=== PATIENT | male | born 1940 | race African-American/Black ===

== ENCOUNTER → 2019-07-28 | Outpatient (CLI) | payer BC ==
--- NOTE | 2019-07-28 11:28 | PCVCIMAG ---
APPROVED REPORT Study performed: 07/28/2019 09:36:39 EXAM: Comprehensive 2D, Doppler, and color-flow Echocardiogram Patient Location: Echo lab Room #: 2Status: routine BSA: 2.18 HR: 56 bpmBP: 138/76 mmHg Rhythm: Bradycardia Other Information Study Quality: Good Risk Factors: Cardiac Risk Factors: HTN, Hyperlipidemia Indications Abnormal ECG CAD Hypertension/HDD elevated coronary calcium score 2D Dimensions IVSd: 10.21 (7-11mm)LVOT Diam: 20.81 (18-24mm) LVDd: 46.34 mm PWd: 10.53 (7-11mm)Ascending Ao: 33.71 (22-36mm) LVDs: 28.01 (25-40mm) Left Atrium: 28.95 (27-40mm) Aortic Root: 29.43 mm LV Single Plane 4CH: 60.00 % LV Single Plane 2CH: 66.00 % Biplane EF: 64.0 % Volumes Left Atrial Volume (Systole) Single Plane 4CH: 41.86 mLSingle Plane 2CH: 63.04 mL Biplane LA Volume: 52.00 mLLA ESV Index: 24.00 mL/m2 Aortic Valve AoV Peak Coleman.: 1.59 m/s AO Peak Gr.: 10.17 mmHgLVOT Max P.61 mmHg LVOT Max V: 1.04 m/s TISH Vmax: 2.23 cm2 AI Vmax: 3.26 m/s AI Hunt: 1.26 m/s2 AI PHT: 747.98 ms Mitral Valve E/A Ratio: 1.1 MV Decel. Time: 202.34 ms MV E Max Coleman.: 0.60 m/s MV A Coleman.: 0.54 m/s IVRT: 124.57 ms TDI E/Lateral E': 7.50E/Medial E': 10.00 Medial E' Coleman.: 0.06 m/s Lateral E' Coleman.: 0.08 m/s Pulmonary Valve PV Peak Coleman.: 0.78 m/sPV Peak Gr.: 2.46 mmHg Pulmonary Vein P Vein S: 0.47 m/sP Vein A: 0.28 m/s P Vein D: 0.39 m/sP Vein A Dur.: 93.4 msec P Vein S/D Ratio: 1.21 Tricuspid Valve TR Peak Coleman.: 1.91 m/s TR Peak Gr.: 14.65 mmHg TV Vmax: 0.51 m/sPA Pressure: 22.00 mmHg Left Ventricle The left ventricle is normal size. There is normal LV segmental wall motion. There is normal left ventricular wall thickness. Left ventricular systolic function is normal. The left ventricular ejection fraction is within the normal range. LVEF is 60-65%. Mild diastolic dysfunction Right Ventricle The right ventricle is normal size. The right ventricular systolic function is normal. Atria The left atrium size is normal. The right atrium size is normal. Aortic Valve Aortic valve is trileaflet, mildly calcified. Mild to moderate aortic regurgitation. There is no aortic valvular stenosis. Mitral Valve The mitral valve is normal in structure. Trace mitral regurgitation. No evidence of mitral valve stenosis. Tricuspid Valve The tricuspid valve is normal in structure. Trace to mild tricuspid regurgitation. No apparent pulmonary hypertension. Pulmonic Valve The pulmonary valve is normal in structure. There is no pulmonic valvular regurgitation. Great Vessels The aortic root is normal in size. The ascending aorta is normal in size. IVC is normal in size and collapses >50% with inspiration. Pericardium There is no pericardial effusion. There is no pleural effusion. <Conclusion> Left ventricular systolic function is normal. There is normal LV segmental wall motion. LVEF is 60-65%. Mild diastolic dysfunction Aortic valve is trileaflet, mildly calcified, no stenosis. Mild to moderate aortic regurgitation. The mitral valve is normal in structure. Trace mitral regurgitation. Pulmonary artery pressure of 20 mmHg There is no pericardial effusion.
== END | disposition home or self-care (01) ==
LOC: PCVCIMAG 09:27
PROVIDERS: ATTEND Internal Medicine
DX: I35.1 Nonrheumatic aortic (valve) insufficiency (principal); I10 Essential (primary) hypertension; I25.10 Atherosclerotic heart disease of native coronary artery without angina pectoris
CPT/HCPCS: 93306